=== PATIENT | female | born 1990 | race Caucasian/White ===

== ENCOUNTER 2017-01-09 21:01 | Inpatient (IN) | payer OTHER ==
[2017-01-09] MEDS ORDERED: Misoprostol 200 MCG Tab PO PRN (21:23)
[2017-01-09] MEDS ORDERED: Sodium Chloride 0.9% 2.5 ML Syringe FLUSH PRN (21:23)
[2017-01-09] MEDS ORDERED: Sodium Chloride 0.9% 10 ML Syringe FLUSH PRN (21:23)
[2017-01-09] MEDS ORDERED: Carboprost Tromethamine 250 MCG/1 ML Amp IM PRN (21:23)
[2017-01-09] MEDS ORDERED: Lidocaine 1% 50 ML MDV INJECT PRN (21:23)
[2017-01-09] MEDS ORDERED: Methylergonovine 0.2 MG/1 ML Amp IM PRN (21:23)
[2017-01-09] MEDS ORDERED: Water For Irrigation,Sterile 1,000 ML Container IRR PRN (21:23)
[2017-01-09] MEDS ORDERED: Butorphanol 1 MG/ML SDV IVPUSH PRN (21:23)
[2017-01-09] MEDS ORDERED: Nalbuphine 10 MG/1 ML Vial IVPUSH PRN (21:23)
[2017-01-09] MEDS ORDERED: Terbutaline 1 MG/ML SDV SUBCUT PRN (21:28)
[2017-01-09] MEDS ORDERED: Oxytocin/Lactated Ringers 30 UNIT/500 ML BAG IV SCH ×2 (21:30)
[2017-01-09] MEDS: Lactated Ringers 1,000 ML IV SCH (21:52)
[2017-01-10] MEDS: Lactated Ringers 1,000 ML IV SCH ×3 (00:09→01:28)
[2017-01-10] MEDS ORDERED: fentaNYL 100 MCG/2 ML SDV ONE (00:30)
[2017-01-10] MEDS ORDERED: Ropivacaine 0.2% 2 MG/ML 20 ML SDV ONE (00:31)
[2017-01-10] MEDS ORDERED: ePHEDrine 50 MG/ML SDV ONE (00:53)
--- NOTE | 2017-01-10 01:19 | PCM.PREANE ---
Preanesthetic Assessment - Anesthesia/Transfusion/Family Hx Anesthesia History: Prior Anesthesia Without Reaction Family History of Anesthesia Reaction: No Transfusion History: No Prior Transfusion(s) Type of Transfusion Reactions: Reports: Unknown - Review of Systems General: No Symptoms Pulmonary: No Symptoms Cardiovascular: No Symptoms Gastrointestinal: No symptoms Neurological: No Symptoms Other: Reports: None - Physical Assessment NPO Status Date: 01/10/17 NPO Status Time: 01:05 (cl liquids) Height: 1.6 m Weight: 84.368 kg ASA Class: 2 Mental Status: Alert & Oriented x3 Airway Class: Mallampati = 2 Dentition: Reports: Normal Dentition Thyro-Mental Finger Breadths: 3 Mouth Opening Finger Breadths: 3 ROM/Head Extension: Full Lungs: Clear to auscultation, Normal respiratory effort Cardiovascular: Regular Rate, Regular Rhythm - Lab Values: Laboratory Last Values WBC 12.88 K/uL (4.0-11.0) H 01/09/17 21:52 RBC 4.17 M/uL (4.30-5.90) L 01/09/17 21:52 Hgb 12.0 g/dL (12.0-16.0) 01/09/17 21:52 Hct 36.2 % (36.0-46.0) 01/09/17 21:52 MCV 86.8 fL (80.0-98.0) 01/09/17 21:52 MCH 28.8 pg (27.0-32.0) 01/09/17 21:52 MCHC 33.1 g/dL (31.0-37.0) 01/09/17 21:52 RDW Std Deviation 44.1 fl (28.0-62.0) 01/09/17 21:52 RDW Coeff of [place] 14 % (11.0-15.0) 01/09/17 21:52 Plt Count 261 K/uL (150-400) 01/09/17 21:52 MPV 9.50 fL (7.40-12.00) 01/09/17 21:52 Nucleated RBC % 0.0 /100WBC 01/09/17 21:52 Nucleated RBCs # 0 K/uL 01/09/17 21:52 Blood Type O POSITIVE 01/09/17 21:52 Antibody Screen NEGATIVE 01/09/17 21:52 - Allergies Allergies/Adverse Reactions: Allergies Allergy/AdvReac Type Severity Reaction Status Date / Time No Known Allergies Allergy Verified 01/09/17 23:17 - Acknowledgements Anesthesia Type Planned: Epidural Pt an Appropriate Candidate for the Planned Anesthesia: Yes Alternatives and Risks of Anesthesia Discussed w Pt/Guardian: Yes Pt/Guardian Understands and Agrees with Anesthesia Plan: Yes PreAnesthesia Questionnaire - Past Health History Medical/Surgical History: Denies Medical/Surgical History HEENT History: Reports: Impaired Vision Respiratory History: Reports: Asthma (Exercise induced, carries inhaler, no recent use) 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 Musculoskeletal History: History of mild scoliosis - Past Surgical History HEENT Surgical History: Reports: Eye Surgery, Myringotomy w Tube(s) - SUBSTANCE USE Smoking Status *Q: Never Smoker Second Hand Smoke Exposure: No Recreational Drug Use History: No - HOME MEDS Home Medications: Home Meds Sertraline [Zoloft] 50 mg PO QAM 10/01/14 [History] Albuterol [IJD: Albuterol HFA] 1 puff IH 01/09/17 [History] Fexofenadine HCl [Angela Allergy] 01/09/17 [History] PNV95/Ferrous Fumarate/FA [ Tablet] 01/09/17 [History] - CURRENT (IN HOUSE) MEDS Current Meds: Current Medications Butorphanol Tartrate (Stadol) 1 mg IVPUSH Q1H PRN PRN Reason: Pain Carboprost Tromethamine (Hemabate Ds) 250 mcg IM ASDIRECTED PRN PRN Reason: Post Hemorrhage Lactated Ringer's (Ringers, Lactated) 1,000 mls @ 150 mls/hr IV ASDIRECTED ROD Last Admin: 01/10/17 00:40 Dose: 150 mls/hr Oxytocin/Lactated Ringer's (Pitocin In Lr 30 Units/500 Ml) 30 unit in 500 mls @ 2 mls/hr IV TITRATE ROD; 2 MUNITS/MIN PRN Reason: Protocol Stop: 01/10/17 21:29 Oxytocin/Lactated Ringer's (Pitocin In Lr 30 Units/500 Ml) 30 unit in 500 mls @ 2 mls/hr IV TITRATE ROD; 2 MUNITS/MIN PRN Reason: Protocol Last Titration: 01/09/17 22:39 Dose: 4 munits/min, 4 mls/hr Lidocaine HCl (Xylocaine 1%) 50 ml INJECT .ONCE PRN PRN Reason: Laceration repair Methylergonovine Maleate (Methergine) 0.2 mg IM ASDIRECTED PRN PRN Reason: Post Hemorrhage Misoprostol (Cytotec) 200 mcg PO .ONCE PRN PRN Reason: Post Hemorrhage Sodium Chloride (Saline Flush) 10 ml FLUSH ASDIRECTED PRN PRN Reason: Keep Vein Open Sodium Chloride (Saline Flush) 2.5 ml FLUSH ASDIRECTED PRN PRN Reason: Keep Vein Open Sterile Water (Sterile Water For Irrigation) 1,000 ml IRR ASDIRECTED PRN PRN Reason: delivery Terbutaline Sulfate (Brethine) 0.25 mg SUBCUT ASDIRECTED PRN PRN Reason: Tacysystole Discontinued Medications Ephedrine Sulfate (Ephedrine Sulfate) Confirm Administered Dose 50 mg .ROUTE .STK-MED ONE Stop: 01/10/17 00:54 Fentanyl (Sublimaze) Confirm Administered Dose 100 mcg .ROUTE .STK-MED ONE Stop: 01/10/17 00:31 Ropivacaine/Fentanyl/NS (Fentanyl 2 Mcg-Ropiv 0.2%-Ns) Confirm Administered Dose 100 mls @ as directed .ROUTE .STK-MED ONE Stop: 01/10/17 00:31 Nalbuphine HCl (Nubain) 10 mg IVPUSH Q1H PRN PRN Reason: Pain (severe 7-10) Stop: 01/09/17 23:24 Ropivacaine (Naropin 0.2%) Confirm Administered Dose 20 ml .ROUTE .STK-MED ONE Stop: 01/10/17 00:32 - Free Text/Narrative Note: Procedure: Epidural placement Start Date: 01/10/17 Start Time: 31 003: Pt requests epidural for contraction pain of "9/10". Was admitted for pitocin induction for post dates X 1 day. BP marginally low, asymptomatic. FHR WNL. Time out done. Risks/benefits discussed and pt assessed. 1000 ml LR bolus given with 2nd liter infusing. 0039: Sitting position. Sterile prep/drape. Midline to L3-4. 19 g Tuohy needle advanced to 6 cm for DIETER with glass syringe and 3 ml sterile water. Neg heme/CSF. 0043: Catheter threaded to 20 cm with no resistance. Mild L transient parasthesia during catheter advancement. 0044: Test dose 3 ml 1.5% lidocaine with 1:200,000 epi. Negative response. 0049: Semi fowlers. Bolus dose of 100 mcg fentanyl given. No further bolus r/ t marginal hypotension. 0054: Ephedrine 10 mg IV for hypotension, asymptomatic. 0055: Epidural infusion started at 8 ml/hr with WELLNESS NURSE RN bolus of 5 ml every 15 minutes set to pump. Medication: 100 ml 0.2% ropivacaine with 2mcg/ml fentanyl added. WELLNESS NURSE RN explained to patient. Will monitor BP and FHR in OB unit. Treat symptomatic BP as needed. 0118: Pt comfortable, denies pain with contractions. BP improved to prior levels. End date: 01/10/19 End time: 0118
[2017-01-10] MEDS ORDERED: Benzocaine/Menthol 20%-0.5% Spray 78 GM Cannister TOP PRN (09:32)
[2017-01-10] MEDS ORDERED: Docusate Sodium 100 MG Cap PO PRN (09:32)
[2017-01-10] MEDS ORDERED: Lanolin 100% Cream 7 GM Tube TOP PRN (09:32)
[2017-01-10] MEDS ORDERED: Witch Hazel Medicated Pads 40/Jar TOP PRN (09:32)
[2017-01-10] MEDS ORDERED: Bisacodyl 10 MG Supp RECTAL PRN (09:32)
[2017-01-10] MEDS ORDERED: oxyCODONE 5 MG Tab PO PRN (09:32)
[2017-01-10] MEDS ORDERED: Acetaminophen 500 MG Tab PO PRN (09:32)
[2017-01-10] MEDS: Ibuprofen 800 MG Tab PO PRN ×3 (10:02→23:27)
--- NOTE | 2017-01-10 14:26 | PCM48HPAN ---
Post Anesthesia Note - EVALUATION WITHIN 48HRS OF ANESTHETIC Vital Signs in Normal Range: Yes Patient Participated in Evaluation: Yes Respiratory Function Stable: Yes Airway Patent: Yes Cardiovascular Function Stable: Yes Hydration Status Stable: Yes Pain Control Satisfactory: Yes Nausea and Vomiting Control Satisfactory: Yes Mental Status Recovered: Yes
--- NOTE | 2017-01-11 06:24 | OR ---
SURGEON: Avril Galarza DATE OF PROCEDURE: PREDELIVERY HISTORY: This is a 26-year-old G2, P1, who presented to Labor and Delivery on January 09, 2017, for elective induction of labor at 40 weeks and 1 day. heart tracing was significant for category 1 status. The patient was having an occasional contraction. Her cervix on admission was 4 cm. The patient was started on IV Pitocin, which got to a maximum of 4 and contractions picked up. Amniotomy was performed for clear fluid. The patient advanced to get uncomfortable shortly thereafter. The patient did receive her epidural. The patient did eventually progress to complete status and vertex was noted to be left occiput posterior. Mom did eventually push effectively to deliver the baby in the left occiput posterior position. PREOPERATIVE DIAGNOSES: 1. Intrauterine at 40 weeks and 2 days. 2. GBS negative. 3. Elective induction of labor. POSTOPERATIVE DIAGNOSES: 1. Intrauterine at 40 weeks and 2 days. 2. Delivery status. 3. Midline second-degree perineal laceration. PROCEDURE PERFORMED: 1. Spontaneous-assisted vaginal delivery. 2. Repair of midline second-degree perineal laceration. ANESTHESIA: Epidural and local. ESTIMATED BLOOD LOSS: Was 125 mL. FINDINGS: Were viable male in vertex presentation with score of 8 and 9, and weight of 3500 g. Normal intact placenta with 3-vessel cord. Midline second- degree perineal laceration. COMPLICATIONS: None known. DISPOSITION: Mom and tolerated the procedure well. DESCRIPTION OF PROCEDURE: This female under epidural anesthesia delivered a viable male with score of 8 and 9 at 1 and 5 minutes respectively. Weight of 3500 g. Delivery was via spontaneous assisted vaginal delivery with infant in vertex presentation. Upon delivery of the vertex, the neck was checked. There was no nuchal to be delivered and with gentle downward traction, the anterior shoulder was delivered followed by the body. The infant was bulb suctioned at delivery and was vigorous, and placed directly on mom's abdomen at maternal request. Cord was doubly clamped and cut. Cord blood was collected and sent for analysis. After delivery of the , IV Pitocin was given in bolus fashion to help actively manage the third stage of labor. A fundal massage was completed along with traction on the umbilical cord with signs of separation. A normal intact placenta with 3-vessel cord was delivered. After delivery of and placenta, the vagina, perineum, and rectum were explored. The patient had a midline second-degree perineal laceration along the line of her prior laceration. The second-degree perineal laceration was repaired with 3 - 0 Vicryl suture in the usual three layered fashion. After repair, the lower uterine segment vagina was cleared of all clots and debris. The patient was cleansed, pads were changed, and the bed was returned to functioning status. The patient and tolerated the procedure well. Sponge, lap, needle, and instrument counts were correct. KONRAD / VEENA /[id number] EDITH
--- NOTE | 2017-01-11 09:31 | PCM.PNPP ---
- General Info Date of Service: 01/11/17 Functional Status: Reports: pain controlled, tolerating diet, ambulating, urinating - Review of Systems General: Reports: No Symptoms HEENT: Reports: no symptoms Pulmonary: Reports: no symptoms Cardiovascular: Reports: No Symptoms Gastrointestinal: Reports: No symptoms Genitourinary: Reports: no symptoms Musculoskeletal: Reports: no symptoms Skin: Reports: no symptoms Neurological: Reports: No Symptoms Psychiatric: Reports: no symptoms - General Info Date of Service: 01/11/17 - Patient Data Vital Signs - most recent: Last Vital Signs Temp 37.1 C 01/10/17 20:00 Pulse 107 H 01/10/17 20:00 Resp 14 01/10/17 20:00 BP 124/73 01/10/17 20:00 Pulse Ox 98 01/10/17 20:00 Weight - most recent: 84.368 kg Lab Results - last 24 hrs: Laboratory Results - last 24 hr 01/11/17 Range/Units 05:41 Hgb 10.4 L (12.0-16.0) g/dL Hct 32.0 L (36.0-46.0) % Med Orders - Current: Current Medications Acetaminophen (Tylenol Extra Strength) 500 mg PO Q4H PRN PRN Reason: Pain Benzocaine/Menthol (Dermoplast Pain Relief 20%-0.5% [place]) 78 gm TOP ASDIRECTED PRN PRN Reason: Perineal Comfort Measure Last Admin: 01/10/17 10:03 Dose: 78 gm Bisacodyl (Dulcolax) 10 mg RECTAL .ONCE PRN PRN Reason: Constipation Butorphanol Tartrate (Stadol) 1 mg IVPUSH Q1H PRN PRN Reason: Pain Carboprost Tromethamine (Hemabate Ds) 250 mcg IM ASDIRECTED PRN PRN Reason: Post Hemorrhage Docusate Sodium (Colace) 100 mg PO BID PRN PRN Reason: Constipation Last Admin: 01/10/17 10:02 Dose: 100 mg Emollient Ointment (Lansinoh Hpa) 0 gm TOP ASDIRECTED PRN PRN Reason: Sore Nipples Lactated Ringer's (Ringers, Lactated) 1,000 mls @ 150 mls/hr IV ASDIRECTED ROD Last Admin: 01/10/17 01:28 Dose: 150 mls/hr Oxytocin/Lactated Ringer's (Pitocin In Lr 30 Units/500 Ml) 30 unit in 500 mls @ 2 mls/hr IV TITRATE ROD; 2 MUNITS/MIN PRN Reason: Protocol Last Titration: 01/10/17 08:54 Dose: 250 munits/min, 250 mls/hr Ibuprofen (Motrin) 800 mg PO Q6H PRN PRN Reason: Pain Last Admin: 01/10/17 23:27 Dose: 800 mg Lidocaine HCl (Xylocaine 1%) 50 ml INJECT .ONCE PRN PRN Reason: Laceration repair Last Admin: 01/10/17 09:56 Dose: 50 ml Methylergonovine Maleate (Methergine) 0.2 mg IM ASDIRECTED PRN PRN Reason: Post Hemorrhage Misoprostol (Cytotec) 200 mcg PO .ONCE PRN PRN Reason: Post Hemorrhage Oxycodone HCl (Oxycodone) 5 mg PO Q2H PRN PRN Reason: Pain Sodium Chloride (Saline Flush) 10 ml FLUSH ASDIRECTED PRN PRN Reason: Keep Vein Open Sodium Chloride (Saline Flush) 2.5 ml FLUSH ASDIRECTED PRN PRN Reason: Keep Vein Open Sterile Water (Sterile Water For Irrigation) 1,000 ml IRR ASDIRECTED PRN PRN Reason: delivery Last Admin: 01/10/17 09:56 Dose: 1,000 ml Terbutaline Sulfate (Brethine) 0.25 mg SUBCUT ASDIRECTED PRN PRN Reason: Tacysystole Witch Rajni (Tucks) 1 pad TOP ASDIRECTED PRN PRN Reason: comfort care Last Admin: 01/10/17 10:03 Dose: 1 pad Discontinued Medications Ephedrine Sulfate (Ephedrine Sulfate) Confirm Administered Dose 50 mg .ROUTE .STK-MED ONE Stop: 01/10/17 00:54 Last Admin: 01/10/17 08:50 Dose: Not Given Fentanyl (Sublimaze) Confirm Administered Dose 100 mcg .ROUTE .STK-MED ONE Stop: 01/10/17 00:31 Last Admin: 01/10/17 08:50 Dose: Not Given Oxytocin/Lactated Ringer's (Pitocin In Lr 30 Units/500 Ml) 30 unit in 500 mls @ 2 mls/hr IV TITRATE ROD; 2 MUNITS/MIN PRN Reason: Protocol Stop: 01/10/17 21:29 Last Admin: 01/10/17 15:03 Dose: Not Given Ropivacaine/Fentanyl/NS (Fentanyl 2 Mcg-Ropiv 0.2%-Ns) Confirm Administered Dose 100 mls @ as directed .ROUTE .STK-MED ONE Stop: 01/10/17 00:31 Last Admin: 01/10/17 08:50 Dose: Not Given Nalbuphine HCl (Nubain) 10 mg IVPUSH Q1H PRN PRN Reason: Pain (severe 7-10) Stop: 01/09/17 23:24 Ropivacaine (Naropin 0.2%) Confirm Administered Dose 20 ml .ROUTE .STK-MED ONE Stop: 01/10/17 00:32 Last Admin: 01/10/17 08:50 Dose: Not Given - Infant Interaction Infant Disposition, : [place] in Room with Family Infant Interaction: Holding Feeding: Breastfed Infant; Nursed Well Support Person: - Recovery Exam Fundal Tone: Firm Fundal Level: 1 Fingerbreadths Below Umbilicus Fundal Placement: Midline Lochia Amount: Scant Lochia Color: Rubra/Red Perineum Description: Other (see below) Other Perinuem Description: 2nd degree laceration Episiotomy/Laceration: Approximated Bladder Status: Voiding Urinary Elimination: Voided - Exam General: alert, oriented Neck: supple Lungs: Clear to auscultation, Normal respiratory effort Cardiovascular: Regular Rate, Regular Rhythm Abdomen: bowel sounds present Extremities: no calf tenderness Skin: warm, dry, intact Neurological: no new focal deficit Psy/Mental Status: alert, normal affect, normal mood - Problem List & Annotations (1) Vaginal delivery SNOMED Code(s): 823737272 Code(s): O80 - ENCOUNTER FOR FULL-TERM UNCOMPLICATED DELIVERY Status: Acute Current Visit: Yes - Problem List Review Problem List Initiated/Reviewed/Updated: Yes - My Orders Last 24 Hours: My Active Orders 01/10/17 09:32 Patient Status [ADT] Routine May Shower [RC] ASDIRECTED Up ad Delaney [RC] ASDIRECTED Vital Signs [RC] PER UNIT ROUTINE Acetaminophen [Tylenol Extra Strength] 500 mg PO Q4H PRN Benzocaine/Menthol [Dermoplast Pain Relief 20%-0.5% [place]] 78 gm TOP ASDIRECTED PRN Bisacodyl [Dulcolax] 10 mg RECTAL .ONCE PRN Docusate Sodium [Colace] 100 mg PO BID PRN Ibuprofen [Motrin] 800 mg PO Q6H PRN Lanolin [Lansinoh HPA] See Dose Instructions TOP ASDIRECTED PRN Witjhon Rajni [Tucks] 1 pad TOP ASDIRECTED PRN oxyCODONE 5 mg PO Q2H PRN Assess Lochia [WOMSER] Per Unit Routine Assess Uterine Involution [WOMSER] Per Unit Routine Breast Pump [WOMSER] Per Unit Routine Ice Therapy [OM.PC] Per Unit Routine Perineal Care [OM.PC] Per Unit Routine Peripheral IV Discontinue [OM.PC] Routine Sitz Bath [OM.PC] Per Unit Routine - Assessment Assessment:: PPD#1 S/p SAVD Doing well Desires discharge home today if possible - Plan Plan:: Will await this afternoon to assess discharge as is emetic after feedings Discharge instructions given Pelvic rest for 6wks Bleeding precautions given Infection precautions given Thrombotic precautions given blues/depression precautions given
[2017-01-11] MEDS: Ibuprofen 800 MG Tab PO PRN (09:46)
[2017-01-11 12:48] VITALS: BP 111/82
== END 2017-01-11 16:10 | disposition home or self-care (01) | DRG 775 ==
LOC: MW.OBCHECK 21:01 → MW.OB 21:02 → MW.OBCHECK 21:23 → OBSVTOIN 01-10 08:22 → MW.OB 01-11 15:25
PROVIDERS: ADMIT Obstetrics & Gynecology; ATTEND Obstetrics & Gynecology
PROC: 10E0XZZ Delivery of Products of Conception, External Approach (ICD-10-PCS; principal; 2017-01-10)
PROC: 0KQM0ZZ Repair Perineum Muscle, Open Approach (ICD-10-PCS; 2017-01-10)
PROC: 3E033VJ Introduction of Other Hormone into Peripheral Vein, Percutaneous Approach (ICD-10-PCS; 2017-01-10)
PROC: 10907ZC Drainage of Amniotic Fluid, Therapeutic from Products of Conception, Via Natural or Artificial Opening (ICD-10-PCS; 2017-01-10)
DX: O70.1 Second degree perineal laceration during delivery (principal); Z37.0 Single live birth; Z3A.40 40 weeks gestation of pregnancy
CPT/HCPCS: 36415; 59025; 85014; 85018; 85027; 86850; 86900; 86901; A9270-GY; J2795; J3010; J7120